=== PATIENT | male | born 1990 | race Two or more races ===

== ENCOUNTER 2016-06-26 05:12 | Day surgery (SDC) | payer BC ==
[~2016-06-26 05:12] MED LIST: ALOE VERA170 GM TP; ASPIRIN325 M3 PO; COLACE100 M1 PO; MIRALAX17 G2 PO; NEURONTIN100 M1 PO; OXYCODONE HCL5 M1 PO; ULTRAM50 M1 PO
[2016-06-26] MEDS ORDERED: MELATONIN10 M4 (06:08)
[2016-06-26 06:53] LABS: BASO % 0.2 % (0-2); EOS % 2.3 % (0-7); EOSINOPHIL ABSOLUTE COUNT 0.1 tho/cmm (0.0-0.7); HCT-HEMATOCRIT 38.9 % (36.0-53.5); IMMATURE GRANULOCYTES ABSOLUTE 0.01 tho/cmm (0-0.03); IMMATURE GRANULOCYTES PERCENT 0.2 % (0-0.3); LYMPH ABSOLUTE COUNT 2.7 tho/cmm (0.8-4.5); MCH (MEAN CORPUSCULAR HGB) 30.6 pg (28.0-32.0); MCV (MEAN CELL VOLUME) 85.1 fl (82.0-96.0); MEAN PLATELET VOLUME 8.9 cmc (9.4-12.4); MONO % 10.6 % (0-12); MONOCYTE ABSOLUTE COUNT 0.6 tho/cmm (0.0-1.2); NEUTROPHIL ABSOLUTE COUNT 2.1 tho/cmm (1.6-8.0); NEUTROPHIL-AUTOMATED 2.1 tho/cmm (1.6-8.0); NEUTROPHILS % 37.7 % (40-80); PLATELET COUNT 175 tho/cmm (150-450); RED BLOOD COUNT 4.57 mil/cmm (4.40-5.70); RED CELL DISTRIBUTION WIDTH 12.5 % (12.4-16.4); WHITE BLOOD COUNT 5.6 tho/cmm (4.0-10.0)
[2016-06-26 07:01] LABS: ANION GAP 13 mmol/L (0-20); BLOOD UREA NITROGEN 24 mg/dl (6-24); CALCIUM 8.8 mg/dl (8.5-10.5); CARBON DIOXIDE-VENOUS 26 mmol/L (22-32); CHLORIDE 103 mmol/l (96-110); CREATININE 0.77 mg/dl (0.60-1.30); GLUCOSE 96 mg/dL (70-110); POTASSIUM 3.8 mmol/L (3.7-5.1); SODIUM 138 mmol/L (135-145); eGFR VALUE FOR BLACK >90 mL/Min
[2016-06-27] MEDS ORDERED: NORCO 5-325 TA1 EACH PO (04:48)
[2016-06-27] MEDS ORDERED: KEFLEX500 M4 PO (08:49)
[2016-08-02] MEDS ORDERED: AUGMENTIN 875-1 EAC2 PO (09:08)
[2016-08-14] MEDS ORDERED: CYMBALTA30 M1 PO (09:00)
== END 2016-06-27 10:15 ==
LOC: SRG 05:12 → SHSC 05:14 → ORW 07:28 → BURN 08:43
PROVIDERS: Anesthesiology; Surgery
PROC: 0X6Q0Z1 Detachment at Right Middle Finger, High, Open Approach (ICD-10-PCS; principal; 2016-06-26)
PROC: 0X6N0Z1 Detachment at Right Index Finger, High, Open Approach (ICD-10-PCS; 2016-06-26)
PROC: 0HRFX74 Replacement of Right Hand Skin with Autologous Tissue Substitute, Partial Thickness, External Approach (ICD-10-PCS; 2016-06-26)
PROC: 0HRNX74 Replacement of Left Foot Skin with Autologous Tissue Substitute, Partial Thickness, External Approach (ICD-10-PCS; 2016-06-26)
DX: T34.531A Frostbite with tissue necrosis of right finger(s), initial encounter (principal); T34.832A Frostbite with tissue necrosis of left toe(s), initial encounter; F41.9 Anxiety disorder, unspecified; F32.9 Major depressive disorder, single episode, unspecified; F17.210 Nicotine dependence, cigarettes, uncomplicated; Z21 Asymptomatic human immunodeficiency virus [HIV] infection status; Z79.82 Long term (current) use of aspirin; Z79.899 Other long term (current) drug therapy; Z98.890 Other specified postprocedural states
CPT/HCPCS: J0171; J0690; J2270; J3010; J3260; J3370